=== PATIENT | male | born 1940 | race Caucasian/White ===

== ENCOUNTER 2017-06-17 09:28 | Observation (INO) | payer MEDICARE, OTHER ==
[2017-06-17] VITALS (7 sets, daily range): BP systolic 106–137; BP diastolic 58–75; PULSE 61–73; RESP 16–18; O2SAT 98–99
[~2017-06-17] VITALS: Ht 177.8 cm; Wt 62.2 kg
--- NOTE | 2017-06-17 09:44 | ED.REPORT ---
HPI-Neurologic Deficit Date of Service Jun 17, 2017 ED Provider: Dr. Hernandez Pt is a 77 year old male with a hx of CAD, DM, HTN and hyperlipidemia presenting to the ED complaining of bilateral hand numbness onset today. He states that 3 days ago he fell three times because he lost his balance and felt weak. Yesterday, he developed right sided numbness (right arm and leg) and felt like he had "floaty vision". Today he began having bilateral hand numbness. His reports that for the last 3 months he has been feeling unsteady, increased since 3 days ago. He reports that he hit his head on the grass each time he fell but denies headache, chest pain, abdominal pain, nausea, or vomiting. His states that he has had 13 right hip surgeries throughout the years with some complications. Denies hx of stroke or neurological condition, though his reports that he has had memory problems for a long time which are recently worsening. His doctor took him off Lisinopril a few months ago. Nursing Notes Stated Complaint: POSSIBLE STROKE Chief Complaint: Neuro Symptoms/ Deficits Nursing Notes Reviewed: Yes Allergies: Coded Allergies: TAPE (Verified Allergy, Mild, 12/04/05) pramipexole (Verified Allergy, Mild, UNKNOWN, 09/12/09) rifampin (Verified Allergy, Mild, UNKNOWN, 09/12/09) morphine (Verified Allergy, Unknown, HALLUCINATIONS, 09/12/09) General Time Seen by Provider: 09:45 Chief Complaint Numbness hand... (Both) Hx Obtained From: Patient, Spouse Arrived By: Walk-in Sudden in Onset?: No Onset Occurred: Yesterday Symptom Duration: Since onset Progression Since Onset: Gradually improving Severity: Current: No pain currently Severity: Maximum: No pain Recent Healthcare: No recent doctor visit, No recent hospitalization Similar Sx Previous: No Past Medical History Past Medical History Pernicious anemia angina ASCAD Lichen Sclerosus et atrophicus Chronic low back, right hip, and cervical neck pain Aortic stenosis Hypotestosterone Roscea Osteomyelitis Reports: Coronary artery disease, Diabetes mellitus (Borderline), GERD, Hyperlipidemia (with low HDL), Hypertension Reports: Depression, Thyroid disease (Hypothyroid) Past Surgical History Valve Replacement CABG Multiple shoulder and hip surgeries Smoking History Unknown if Ever Smoker Social History Other Social History: Ambulatory Status Independent Review of Systems Cardiovascular: Denies: Chest pain GI: Denies: Abdominal pain, Nausea, Vomiting Neurologic: Reports: Numbness, Problem walking, Vision change, Denies: Headache Complete sys rev & neg: except as marked. Physical Exam Initial Vital Signs Vital Signs (First) Date Time Temp Pulse Resp B/P Pulse Ox O2 Delivery O2 Flow Rate FiO2 06/17/17 09:32 36.8 73 16 106/58 99 Room Air Initial VS: Reviewed, Vital signs normal ENT: Mucous membranes moist, Conjunctiva normal, No scleral icterus Neck: Supple, Non-tender, Full range of motion Abdomen / GI: Soft, Non-tender, No guarding, No rebound, No distention Extremities: Vascular intact, Neuro intact, No swelling, No tenderness Skin: Warm, Dry, No cyanosis Psychiatric: Mood/affect normal, Behavior normal, Normal thought content General/Constitutional: Awake, Alert, No acute distress Head / Eyes: Atraumatic, Normocephalic, PERRL, EOMI Respiratory / Chest: Breath sounds NL, Breath sounds = bilat, No respiratory distress, No rales, No rhonchi, No wheezing Cardiovascular: Heart rate NL, Regular rhythm, Heart sounds NL, Peripheral circulation NL Neurologic: Oriented X3, Speech NL, No motor deficits, No sensory deficits, CN II - XII intact, Reflexes equal bilat, Cerebellar NL Normal finger to nose and heel to salazar. Interpretation & Diagnostics Lab Results Interpretation Result Diagram: 06/17/17 1025 06/17/17 1025 Test 06/17/17 10:25 06/17/17 12:21 White Blood Count 6.0th/mm3 (3.8-10.1) Red Blood Count 3.62mil/mm3 (4.40-5.80) Hemoglobin 12.0g/dL (13.8-17.2) Hematocrit 36.9% (41.0-50.0) Mean Corpuscular Volume 101.9fL (81-100) Mean Corpuscular Hemoglobin 33.1pg (27.0-35.0) Mean Corpuscular Hemoglobin Concent 32.5% (32.0-37.0) Red Cell Distribution Width 13.6% (12.3-15.4) Platelet Count 242bil/L (150-400) Neutrophils (%) (Auto) 48.6% (40-74) Lymphocytes (%) (Auto) 33.7% (14-46) Monocytes (%) (Auto) 8.5% (4-12) Eosinophils (%) (Auto) 8.2% (0-5) Basophils (%) (Auto) 0.8% (0-3) Prothrombin Time 10.0sec (8.1-12.5) Prothromb Time International Ratio 0.94ratio Activated Partial Thromboplast Time 26.7sec (22.8-33.0) Sodium Level 136mEq/L (134-144) Potassium Level 4.9mEq/L (3.5-5.2) Chloride Level 99mEq/L (97-108) Carbon Dioxide Level 26mmol/L (18-29) Blood Urea Nitrogen 24mg/dL (8-27) Creatinine 1.35mg/dL (0.76-1.27) Estimat Glomerular Filtration Rate 54mL/min (>59) Glucose Level 107mg/dL (60-99) Calcium Level 9.0mg/dL (8.5-10.1) Total Bilirubin 0.4mg/dL (0.0-1.2) Aspartate Amino Transf (AST/SGOT) 24U/L (0-50) Alanine Aminotransferase (ALT/SGPT) 15U/L (0-44) Alkaline Phosphatase 59U/L (25-160) Troponin T 0.010ug/L (0.0-0.011) Total Protein 6.5g/dL (6.4-8.4) Albumin 3.8g/dL (3.4-5.0) Thyroid Stimulating Hormone (TSH) 2.810uIU/mL (0.450-4.500) Free Thyroxine 1.08ng/dL (0.82-1.77) Urine Color Straw (YELLOW) Urine Appearance Hazy (CLEAR,HAZY) Urine pH 6.0 (5.0-8.0) Urine Specific [place] 1.005 (1.003-1.035) Urine Protein Negativemg/dL (NEG,TRACE) Urine Glucose (UA) Negativemg/dL (NEGATIVE) Urine Ketones Negativemg/dL (NEGATIVE) Urine Occult Blood Negative (NEGATIVE) Urine Nitrite Negative (NEGATIVE) Urine Bilirubin Negative (NEGATIVE) Urine Urobilinogen Normalmg/dL (NORMAL) Urine Leukocyte Esterase Negative (NEGATIVE) Urine RBC 0-2/hpf (0-2) Urine WBC 0-5/hpf (0-5) Urine Epithelial Cells Occasional/hpf (NONE-MOD) Urine Crystals None seen (NONE SEEN) Urine Bacteria None/hpf (NONE-FEW) Urine Hyaline Casts Occasional/lpf (NONE) Urine Granular Casts None seen (NONE SEEN) Urine Waxy Casts None seen (NONE SEEN) Urine Red Blood Cell Casts None seen (NONE SEEN) Urine White Blood Cell Casts None seen (NONE SEEN) Urine Mucus None seen (None Seen) Urine Trichomonas None seen (NONE SEEN) Urine Yeast None (NONE SEEN) Urinalysis Comment None Urine Culture Reflexed Not indicated ECG Interpretation ECG Interpretation: 1st degree AV block. Increased QT. Q waves in v1, v2, v3. No acute ST changes. Similar to previous EKG dated 10/2007. Time: 11:00 Interpreted by: ED physician Normal ECG Interpretation: Normal rate (61), Normal sinus rhythm X-Ray Chest Interpretation Chest Xray Interpretation: IMPRESSION: No acute cardiopulmonary disease. Bilaterally symmetric presumed incidental nipple shadows Dislocation of the right glenohumeral joint, although the acuity is unclear. Please correlate clinically and recommend further evaluation with dedicated shoulder series radiographs. Dictated by: Shailesh Almaraz M.D. on 06/17/2017 at 11:01 View: Portable, 1 view Interpretation / Wet Read by: Interpret - Radiologist X-Ray Interpretation Xray Interpretation: IMPRESSION: Severe right shoulder degeneration as above. Dictated by: Shailesh Almaraz M.D. on 06/17/2017 at 12:01 X-Ray Ordered: Shoulder right Interpretation / Wet Read by: Interpret - Radiologist CT Head Interpretation IMPRESSION: There is disproportionate size of the ventricular system compared to the sulci. No acute abnormality is seen intracranially. The appearance of a sprain would suggest the possibility of normal pressure hydrocephalus. Clinical correlation and perhaps nuclear medicine study would be of benefit. Dictated by: Sanket Balbuena M.D. on 06/17/2017 at 10:26 Study: Head CT no contrast Interpretation / Wet Read by: Interpret - Radiologist CT C-Spine Interpretation IMPRESSION: No acute fracture or malalignment. Grade 1/2 anterolisthesis of C4 on C5, chronic. Severe mid to lower cervical degeneration from C4-C7. Dictated by: Shailesh Almaraz M.D. on 06/17/2017 at 10:40 Study type: CT no contrast Interpretation / Wet Read by: Interpret - Radiologist Re-Eval/Medical Decision Med Decision/Clinical Course The patient has symptoms concerning for possible TIA yesterday with numbness to the right side. His symptoms are bilateral which is inconsistent with a CVA but may be related to his recent falls and cervical arthritis. The patient has been having more balance issues recently and was found to have some findings on his CT concerning for normal pressure hydrocephalus. He does indeed have normal pressure hydrocephalus this would explain his balance issue. The patient will be admitted for TIA workup and further evaluation for hydrocephalus. Re-Evaluation/Progress : Time of Eval: 12:01 Patient Status: Condition improved Re-Evaluation/Progress Note: Discussed plan for admission and continued testing. Discussed imaging results. Pt understands and agrees with plan. Consultation : Referral / Consult Name: Nawaf Thomas MD Consulted With: Hospitalist Call Returned at: 12:15 Charge Account Clerk: Will see patient, Agrees with plan, Accepts admit Counseled Regarding: Diagnosis, Lab results, Need for admission Discharge & Departure Impression: Primary Impression: NPH (normal pressure hydrocephalus) Additional Impression: TIA (transient ischemic attack) Transient cerebral ischemia type: other Qualified Code: G45.8 - Other transient cerebral ischemic attacks and related syndromes Disposition: ADMITTED TO HOSPITAL Discharge Condition All VS Reviewed: Yes Condition: Improved Referrals: Lary Kelly MD (PCP) Scribe Attestation Portions of this note were transcribed by Ariana Sosa. I, Dr. Hernandez personally performed the history, physical exam and medical decision-making; I reviewed and confirmed the accuracy of the information in the transcribed note. Signed by : Rl Sanchez, 06/17/2017. copies to: Lary Kelly MD, Jena M MD Jun 17, 2017 09:44 ARIANA SOSA Jun 17, 2017 09:55
[2017-06-17] MEDS ORDERED: 0.9% Sodium Chloride 500 ML IV ONE (10:00)
--- NOTE | 2017-06-17 10:34 | DRSVH ---
PROCEDURE: CT BRAIN WITHOUT CONTRAST ([id number]) INDICATIONS: Stroke TECHNIQUE: Noncontrast 4.5 mm thick angled axial sections acquired from the foramen magnum to the vertex, with c oronal reformats. COMPARISON: None. FINDINGS: Image quality: Good. CSF spaces: Basal cisterns are patent. No extra-axial fluid collections. The ventricles are symmet rajeev in size and shape but enlarged compared to the sulci. Brain: No intracranial bleeds or masses. There is cerebral volume loss for age, with resultant vent ricular and sulcal prominence. There are periventricular and deep white matter chronic small vessel ischemic changes. There is intracranial internal carotid artery atherosclerosis. Skull and face: Calvarium and visualized facial bones appear intact, without suspicious lesions. Sinuses: Visualized sinuses show moderate mucosal thickening in the maxillary and ethmoid sinuses. T he mastoids are clear. IMPRESSION: There is disproportionate size of the ventricular system compared to the sulci. No acute abnormality is seen intracranially. The appearance of a sprain would suggest the possibility of lilian l pressure hydrocephalus. Clinical correlation and perhaps nuclear medicine study would be of benefit . Dictated by: Sanket Balbuena M.D. on 06/17/2017 at 10:26 Approved by: Sanket Balbuena M.D. on 06/17/2017 at 10:32
[2017-06-17 10:35] LABS: BASOPHILS % (AUTO) 0.8 % (0-3); EOSINOPHILS % (AUTO) 8.2 % (0-5); MONOCYTES % (AUTO) 8.5 % (4-12); Mean Corpuscular Hemoglobin 33.1 pg (27.0-35.0); Mean Corpuscular Volume 101.9 fL (81-100); NEUTROPHILS % (AUTO) 48.6 % (40-74); Platelet Count 242 bil/L (150-400)
--- NOTE | 2017-06-17 10:48 | DRSVH ---
PROCEDURE: CT CERVICAL SPINE WITHOUT CONTRAST ([id number]) INDICATIONS: multiple falls with hand numbness TECHNIQUE: Noncontrast 3 mm thick sections acquired from the skull base to the T4 level. Sagittal and coronal r eformats were then constructed. For radiation dose reduction, the following was used: automated exp osure control, adjustment of mA and/or kV according to patient size. COMPARISON: [facility] Tam[facility]o, SPINE CERVICAL 2 OR 3VW, 05/29/2013, 14:28. FINDINGS: Image quality: Excellent. Bones: No fractures or dislocations. Visualized superior ribs are intact. Grade 1/2 anterolisthesi s of C4 on C5 however this is unchanged since 05/29/13. There is diffuse osteopenia. Multilevel mid to lower cervical disc degeneration from C4-C7, severe. Diffuse bilateral facet arthropathy also noted. Soft tissues: Prevertebral soft tissues are normal in thickness. No paravertebral hematomas. No ap ical pneumothoraces. IMPRESSION: No acute fracture or malalignment. Grade 1/2 anterolisthesis of C4 on C5, chronic. Severe mid to lower cervical degeneration from C4-C7. Dictated by: Shailesh Almaraz M.D. on 06/17/2017 at 10:40 Approved by: Shailesh Almaraz M.D. on 06/17/2017 at 10:47
[2017-06-17 10:53] LABS: INR 0.94 ratio
--- NOTE | 2017-06-17 10:56 | NUR ---
Evaluation completed. Please go to "Notes" then click on "Assessments and Notes" (bottom left corner of screen). Then select appropriate discipline tab on top of screen.
[2017-06-17 11:02] LABS: TROPONIN T 0.01 ug/L (0.0-0.011)
--- NOTE | 2017-06-17 11:05 | DRSVH ---
PROCEDURE: X-RAY CHEST ONE VIEW, PORTABLE ([id number]) INDICATIONS: CORNONAR ARTERY DISEASE TECHNIQUE: One view of the chest was acquired. COMPAR[place] [facility] [place], [place]ER MIN 2VW (RT), 01/11/2010, 11:42. [facility] Lau, SHOULDER MIN 2VW (LT), 05/29/2013, 14:28. [facility] Tamayo, CHEST 2VW, 01/02/2013, 11: 08. FINDINGS: Surgical changes and devices: Sternotomy wires and CABG clips.. Lungs and pleura: No pleural effusions or pneumothorax. Lungs are clear. There are bilaterally symm etric incidentally noted nipple shadows Mediastinum: Mediastinal contours appear normal. Heart size is normal. Bones and chest wall: No suspicious bony lesions. Overlying soft tissues appear unremarkable. Disl ocation of the right glenohumeral joint. There is bilateral shoulder joint degeneration. IMPRESSION: No acute cardiopulmonary disease. Bilaterally symmetric presumed incidental nipple shadows Dislocation of the right glenohumeral joint, although the acuity is unclear. Please correlate clinica lly and recommend further evaluation with dedicated shoulder series radiographs. Dictated by: Shailesh Almaraz M.D. on 06/17/2017 at 11:01 Approved by: Shailesh Almaraz M.D. on 06/17/2017 at 11:04
--- NOTE | 2017-06-17 12:04 | DRSVH ---
PROCEDURE: X-RAY RIGHT SHOULDER, MINIMUM TWO VIEWS ([id number]) INDICATIONS: abnormal xray TECHNIQUE: 4 views of the shoulder were acquired. COMPARISON: [facility], CR, SHOULDER MIN 2VW (RT), 01/11/2010, 11:42. FINDINGS: Bones: No fractures or dislocations. No suspicious bony lesions. Visualized ribs appear intact. S evere right shoulder degeneration with [id number]-[id number] appearance, prominent marginal spurring. There is also high riding appearance of the humeral head to just above chronic rotator cuff pathology Soft tissues: No suspicious soft tissue calcifications. IMPRESSION: Severe right shoulder degeneration as above. Dictated by: Shailesh Almaraz M.D. on 06/17/2017 at 12:01 Approved by: Shailesh Almaraz M.D. on 06/17/2017 at 12:02
[2017-06-17] MEDS ORDERED: Ondansetron 2 mg/mL 2 mL Inj IVPUSH PRN (12:25)
[2017-06-17 13:12] LABS: APPEARANCE,URINE HAZY (CLEAR,HAZY); COLOR,URINE STRAW (YELLOW); OCCULT BLOOD,URINE NEGATIVE (NEGATIVE); UROBILINOGEN,URINE NORMAL (NORMAL)
--- NOTE | 2017-06-17 13:43 | PCM.HPMED ---
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 As per patient's , for the past few month, patient was not feeling well, gradually more forgetful and for the past 2-3wks pt became more off balance when he walks using cane or walker. 2days ago, during his yard work, pt was also off his balance and fell hit his Rt knee, head on the grass. Prior to fall, pt denied blurry vision, dizziness, chest pain, palpitation, nausea, vomiting. pt denied LOC, didn't have headache, not confused after each falls, All three falls were in the setting of being off balance. Yesterday afternoon, pt also started to complain of Rt sided weakness on arm and leg, pt/family denied any confusion, facial droop, slurred speech. Today morning, after pt woke up, pt c/o bilateral hand numbness, mild tingling which he never had experienced in the past, was concerned about series of symptoms, brought him to hospital. Of note, Pt was off on Attgtbcyaz2fd since March per , but noted bp 160-180s for the past 2-3days, took 5mg lisinopril last night, this AM BP was recorded 130s. Pt also has DJD on multiple joints, shoulders, knees, takes 7pills of Vicodin per day, which controlled his pain. ROS: denied fever, chills, abd pain, n/v/c/d, pt has baseline urinary frequency , no dysuria, BLOUNT, dizziness, sick contacts, travel, ED VS 106/58, 73,16, afebrile, 99% on RA. labs showed Cr1.35, CTH showed enlarged ventricle consistent to NPH, shoulder/c-spine xray showed no acute findings, dislocation of the right glenohumeral joint-unknown onset, CXR no acute findings. Pt received 1liter of NS bolus During the interview, pt was lucid, communicative, AAOx3, denied BLOUNT, dizziness. at baseline MS per . Review of Systems: Pertinent positives as noted in history of present illness. All other systems were reviewed and are negative Allergies Coded Allergies: TAPE (Verified Allergy, Mild, 12/04/05) pramipexole (Verified Allergy, Mild, UNKNOWN, 09/12/09) rifampin (Verified Allergy, Mild, UNKNOWN, 09/12/09) morphine (Verified Allergy, Unknown, HALLUCINATIONS, 09/12/09) Uncoded Allergies: Pramipexole (Allergy, Mild, UNKNOWN, 12/04/05) Rifampin (Allergy, Mild, UNKNOWN, 12/04/05) TAPE (Allergy, Mild, 12/04/05) nka (Allergy, Unknown, 09/03/04) Home Medications as per EHR 05/26 PCP Percocet 1 tablet every 3-4 hours as needed for pain Lamictal 50mg at noon, 100mg at dinner, 100mg at hs VitB12 2,000 g injection IM q2wk Temazepam 15mg qhs Ketoconazole 2% cream bid Flonase daily [id number] qd Atorvastain 40mg qd LT4 150mcg qd Omeprazole 20mg bid Miralax 2-3times/wk Aspirin 81mg daily Cyvlobenzaprine 5-10mg qhs for RLS MVI qd Magmensium 250mg qd vitD3 2000unit qd PMH Restless leg syndrome Dyspnea S/P CABG Coronary artery disease involving [place] coronary artery of [place] heart without angina pectoris Aortic stenosis, moderate Arthritis Sleep apnea Neck pain Hypertension Essential Coronary atherosclerosis Nuclear senile cataract Hypermetropia URI, acute Chronic Sinusitis Nos Obstructive sleep apnea (adult) (pediatric) Allergic rhinitis Angina Pectoris Arthritis CAD Orthostatic hypotension Insomnia Pernicious Anemia Social History Hx Alcohol Use: No Hx Substance Use: No Smoking Status: Unknown if Ever Smoker Exam Vital Signs Vital Sign - Last Date Time Temp Pulse Resp B/P Pulse Ox O2 Delivery O2 Flow Rate FiO2 06/17/17 09:32 36.8 73 16 106/58 99 Room Air Exam NAD, comfortably laying down on the bed no JVD, MMM, no LAD RRR, nl s1, s2 no mrg CTAB, no w,c S,ND,NT,normoactive BS+ warm, no edema, pulses 2/2 Neuro:speech coherent, fluent, PERRLA, EOMI, symmetric face, no uvulae tongue deviation, able shrug shoulders equally able rotate neck equally on both sides FTN, dysdiadochokinesia intact, motor 5/5 throughout, sensory intact to dull touch Lab and Diagnostics Result Diagram: 06/17/17 1025 06/17/17 1025 Assessment & Plan 77-year-old male with CAD s/p CABG 2008, DM, HTN, HLD presented after 3 episodes of fall 2 days ago, symptoms concerning for stroke. Acute, active Unsteady gait, frequent falls with imbalance, forgetfulness, urinary frequency, POA, likely consistent to NPH, based on CTH findings. Non-focal on neuro exam, although pt subjectively has some paresthesia. no Signs of meningitis or trauma explaining NPH. Acuity of NPH is likely relatively acute given sx onset, no prior CTH was found. -will rule out ischemic stroke with MRI stroke protocol -order LP with opening pressure for diagnostic and therapeutic, monitor improvement, given acute onset, pt may benefit from POTATO PANCAKE FRIER shunt, likely needs to be arranged at other facility. -will get curbside consult with (pt's claims that they personally know )today, no neurology covering today. -PT assessment. -UA Chronic, stable HTN, diet controlled but started by last night, would monitor BP w/o med CAD s/p CABG, moderate , recent TTE 04/24/2017 normal EF, unchanged valvular dz , no RWMA, seen by , continue aspirin hypothyroidism, continue home LT4 HLD, continue statin DJD, PA on multiple joints, continue percocet 10-325 q3h prn BPH, continue tamsulosin depression, continue citalopram CKDII, stable, avoid renal toxin, renally adjust meds dispo:Patient will be admitted with inpatient status with expectation of inpatient therapy for more than 2 midnights diet:DASH dvt ppx:HSQ q12h Full code Time spent 65 minutes Nawaf Thomas MD Jun 17, 2017 12:30
[2017-06-17] MEDS ORDERED: oxyCODONE-Acetamin 10-325 mg Tablet PO PRN (13:50)
--- NOTE | 2017-06-17 14:28 | DRSVH ---
PROCEDURE: MRI STROKE PROTOCOL ([id number]) Pre- and post-contrast brain MRI, non-contrast brain MR angiogram, pre- and postcontrast neck MR anju ogram INDICATIONS: frequent fall NPH on CTH, r/o TIA TECHNIQUE: Brain: Noncontrast axial T1 spin echo, axial T2 fast spin echo, sagittal and axial FLAIR, coronal T2 fast spin echo, axial gradient echo, axial diffusion and ADC through the brain. After the administr ation of contrast, axial 3D VIBE of the cranial vasculature and brain. Brain MRA: Non-contrast 3-D time of flight MR angiogram, with multiple lmowbts-gzpkkhevr-edckfsvfzz (MIP) reformats performed. Neck MRA: Axial and sagittal TruFISP through the neck. Coronal dynamic MR angiogram during administ ration of contrast in the arterial and venous phases, with 3-dimenstional daiyexx-plfryjsay-gdulsyene n (MIP) reformats constructed from subtraction images. COMPARISON: [facility], CT, CT BRAIN WO CON, 06/17/2017, 10:10. FINDINGS: Image quality: Excellent. BRAIN: CSF spaces: Ventricles are enlarged as previously discussed on prior CT dated same day. Basal ciste rns are patent. No extra-axial fluid collections. Brain: No intracranial bleeds or mass effects. Hall-white matter interface is normal. Diffusion we ighted images show no acute ischemic insults. Brainstem appears normal. Normal intravascular flow v oids are present. No abnormal intracranial enhancement. Skull and face: Calvarial marrow signal is normal. Orbits appear normal. Sinuses: There is bilateral maxillary sinus and ethmoid air cell mucosal thickening. BRAIN MR ANGIOGRAM: Anterior circulation: Intracranial internal carotid arteries are normal in size and enhancement. Th e flow within the paired anterior cerebral arteries is normal and symmetric. The flow within the mid dle cerebral arteries is normal and symmetric. No stenoses, occlusions, or aneurysms. Posterior circulation: The visualized portions of the vertebral arteries demonstrate normal caliber, and join to form a normal appearing basilar artery. The flow within the posterior cerebral arteries is normal and symmetric. No stenoses, occlusions, or aneurysms. NECK MR ANGIOGRAM: Carotids: Great vessels demonstrate a conventional anatomy as they arise from the aortic arch. The origins of the common carotid arteries appear patent. The calibers and courses of both common caroti d arteries are normal. The bifurcation regions appear normal bilaterally. The internal carotid mo vincent demonstrate normal course and caliber. Posterior circulation: The origin of the left vertebral artery appears patent. The origin of the righ t vertebral artery is not well-seen. More superior portions of both vertebral arteries demonstrate n ormal course and caliber, and join to form a normal appearing basilar artery. Miscellaneous: Subclavian arteries appear patent. Pre-contrast images through the neck show no soft tissue abnormalities. IMPRESSION: BRAIN MRI: No acute ischemia Enlarged ventricles as before, disproportionate to the appearance of the cortical sulci and again sug gesting normal pressure hydrocephalus, please correlate clinically. If needed, nuclear medicine ciste rnography could be performed. BRAIN MR ANGIOGRAM: No focal stenosis or occlusion NECK MR ANGIOGRAM: Low-grade long segment atherosclerotic narrowing of the proximal left ICA. No focal stenosis. No right ICA focal stenosis. The estimate of stenosis included in the report of the imaging study was calculated using the NASCET method Dictated by: Shailesh Almaraz M.D. on 06/17/2017 at 14:15 Approved by: Shailesh Almaraz M.D. on 06/17/2017 at 14:26
--- NOTE | 2017-06-17 14:45 | NUR ---
[place] [facility] [place] received from Mariam Mitchell RN in ED. Pt brought up to floor via gurney. Pt able to ambulate with cane. A little weak and unsteady with cane from home. Pt oriented to unit, room, and call light. All belongings in closet - disclaimer signed. Admission interventions and MED REC completed - MD paged to update. Pt reports continual hip pain from previous injuries/surgery, was shaking in hands from intensity. [place] administered per orders. Tele: Sbrady 58. Pt updated on plan of care, board updated. Instructed to use call light when needing to get up. Dagmar alarm on. Pt 1P assist for all OOB activity for safety. Continuing with care.
[2017-06-17] MEDS ORDERED: LEVO150T5 PO (15:21)
[2017-06-17] MEDS ORDERED: LIP40 PO (15:21)
[2017-06-17] MEDS ORDERED: LAMO100T PO ×3 (15:24→15:50)
[2017-06-17] MEDS ORDERED: CITA20TA11 PO (15:36)
[2017-06-17] MEDS ORDERED: ASPI-973 PO (15:36)
[2017-06-17] MEDS ORDERED: HYDR-3089 PO (15:36)
[2017-06-17] MEDS ORDERED: RES15 PO (15:36)
[2017-06-17] MEDS ORDERED: OMEP20CA11 PO (15:36)
[2017-06-17] MEDS ORDERED: FOLI0.8C PO (15:36)
[2017-06-17] MEDS ORDERED: LISI-571 PO (15:36)
[2017-06-17] MEDS ORDERED: CYAN-2 IM (15:36)
[2017-06-17] MEDS ORDERED: MAGN400C PO (15:37)
[2017-06-17] MEDS ORDERED: MULT-1018 PO (15:52)
[2017-06-17] MEDS ORDERED: CHOL200047 PO (15:52)
[2017-06-17] MEDS ORDERED: HYDROcodone-APAP 10-325 mg PO PRN (16:00)
[2017-06-17] MEDS: HYDROcodone-APAP 10-325 mg PO SCH (20:59)
[2017-06-17] MEDS ORDERED: lamoTRIgine 100 mg Tablet PO SCH (21:00)
[2017-06-18 00:03] VITALS: BP 109/65; PULSE 60; RESP 18; O2SAT 96
[2017-06-18] MEDS: HYDROcodone-APAP 10-325 mg PO SCH ×5 (00:03→11:33)
[2017-06-18 04:29] VITALS: BP 123/76; PULSE 64; RESP 18; O2SAT 97
[2017-06-18 05:12] LABS: Vitamin D, 25-Hydroxy 66.1 ng/mL (30.0-100.0)
--- NOTE | 2017-06-18 05:54 | NUR ---
PT ACTIVITY/PAIN Pt has been in bed during shift. Pt assisted to turn during night. Pt has chronic pain in hips/legs. PRN po pain medication given scheduled, but pt asked to not be waken up during night to give pain medication. Continue to monitor. Call light in reach. Bed alarm on. Intentional rounding.
[2017-06-18] MEDS ORDERED: Pantoprazole 40 mg ER24 Tablet PO SCH (07:30)
[2017-06-18 07:46] LABS: BASOPHILS % (AUTO) 0.5 % (0-3); EOSINOPHILS % (AUTO) 10.4 % (0-5); MONOCYTES % (AUTO) 8.7 % (4-12); Mean Corpuscular Hemoglobin 33.4 pg (27.0-35.0); Platelet Count 246 bil/L (150-400)
[2017-06-18 08:17] LABS: Magnesium 2.1 mg/dL (1.6-2.6)
[2017-06-18 08:37] VITALS: BP 130/68; PULSE 62; RESP 19; O2SAT 96
--- NOTE | 2017-06-18 10:27 | NUR ---
Case Management: Clarification of patient status: observation per MD order. Dioni Segal RN
--- NOTE | 2017-06-18 10:29 | PCM.DIMED ---
Discharge Instructions Date of Service Jun 18, 2017 Dates of Hospitalization Jun 17, 2017 at 12:46 Discharge Diagnosis Discharge Diagnosis Gait disturbance,Possible NPH Diet Discharge Diet: No restrictions Activity Discharge Activity: Other (as tolerated) Call your provider Call your provider for: Fever or Chills, Shortness of breath, Chest pain, Weakness (unilateral) Patient Instructions Follow-up Provider: Lary Kelly MD Follow-up with PCP in: 1 week Provider: Dave Villanueva MD Follow-up in: Other (as per Dr Villanueva) Analia Newman MD Jun 18, 2017 10:29
[2017-06-18] MEDS ORDERED: LISI-571 PO (10:31)
[2017-06-18] MEDS ORDERED: lamoTRIgine 25 mg Tablet PO SCH (12:00)
--- NOTE | 2017-06-18 12:31 | NUR ---
Case Management: SAM delivered and explained to patient and spouse. Signed original placed in chart. Copy left at bedside. Destiny Kaufman RN
--- NOTE | 2017-06-18 13:20 | NUR ---
Discharge Nursing Note: Patient was discharged to home at 1230. His IV was removed intact. His telemetry was removed. All of his discharge information was reviewed with him and his questions were answered to his satisfaction . Patient was brought in a wheelchair to the hospital lobby by nursing staff member and her was driven to home by his .
--- NOTE | 2017-06-18 13:59 | NUR ---
Social Work-attempted assessment/ discharge: Data:EMR REviewd. Pt is a 77 y/o male who was admitted on 06/17/17 for TIA per H&P. Pt's insurance is [employer] and PCP is Lary Kelly MD. EMR Reviewed. SW attempted to see pt to complete assessment, but pt has already been discharged. PT has cleared pt for home no needs. No discharge needs identified. All updated and agreeable to plan. Assessment:pt who is independent at baseline. Plan:Pt to discharge home today via POV. No discharge needs identified. All updated and agreeable to plan. LAKSHMI Jeter
--- NOTE | 2017-06-18 17:08 | PCM.DC.MED ---
Discharge Summary Date of Service Jun 18, 2017 Dates of Hospitalization Date of Hospital Admission Jun 17, 2017 at 12:46 Date of Discharge: Jun 18, 2017 Providers: Admitting Physician: Nawaf Thomas MD Primary Care Physician: Lary Kelly MD Attending Physician: Nawaf Thomas MD Diagnosis at Time of Discharge Diagnosis at Time of Discharge Gait disturbance,Possible NPH Consultations Neurology Procedures XRay, CTs & MRIs PROCEDURE: MRI STROKE PROTOCOL ([id number]) Pre- and post-contrast brain MRI, non-contrast brain MR angiogram, pre- and postcontrast neck MR angiogram INDICATIONS: frequent fall NPH on CTH, r/o TIA TECHNIQUE: Brain: Noncontrast axial T1 spin echo, axial T2 fast spin echo, sagittal and axial FLAIR, coronal T2 fast spin echo, axial gradient echo, axial diffusion and ADC through the brain. After the administration of contrast, axial 3D VIBE of the cranial vasculature and brain. Brain MRA: Non-contrast 3-D time of flight MR angiogram, with multiple maximum- intensity-projection (MIP) reformats performed. Neck MRA: Axial and sagittal TruFISP through the neck. Coronal dynamic MR angiogram during administration of contrast in the arterial and venous phases, with 3-dimenstional fpfzvdu-ccwcmuzlv-wszbdyfcgf (MIP) reformats constructed from subtraction images. COMPARISON: [facility], CT, CT BRAIN WO CON, 06/17/2017, 10:10. FINDINGS: Image quality: Excellent. BRAIN: CSF spaces: Ventricles are enlarged as previously discussed on prior CT dated same day. Basal cisterns are patent. No extra-axial fluid collections. Brain: No intracranial bleeds or mass effects. Hall-white matter interface is normal. Diffusion weighted images show no acute ischemic insults. Brainstem appears normal. Normal intravascular flow voids are present. No abnormal intracranial enhancement. Skull and face: Calvarial marrow signal is normal. Orbits appear normal. Sinuses: There is bilateral maxillary sinus and ethmoid air cell mucosal thickening. BRAIN MR ANGIOGRAM: Anterior circulation: Intracranial internal carotid arteries are normal in size and enhancement. The flow within the paired anterior cerebral arteries is normal and symmetric. The flow within the middle cerebral arteries is normal and symmetric. No stenoses, occlusions, or aneurysms. Posterior circulation: The visualized portions of the vertebral arteries demonstrate normal caliber, and join to form a normal appearing basilar artery. The flow within the posterior cerebral arteries is normal and symmetric. No stenoses, occlusions, or aneurysms. NECK MR ANGIOGRAM: Carotids: Great vessels demonstrate a conventional anatomy as they arise from the aortic arch. The origins of the common carotid arteries appear patent. The calibers and courses of both common carotid arteries are normal. The bifurcation regions appear normal bilaterally. The internal carotid arteries demonstrate normal course and caliber. Posterior circulation: The origin of the left vertebral artery appears patent. The origin of the right vertebral artery is not well-seen. More superior portions of both vertebral arteries demonstrate normal course and caliber, and join to form a normal appearing basilar artery. Miscellaneous: Subclavian arteries appear patent. Pre-contrast images through the neck show no soft tissue abnormalities. IMPRESSION: BRAIN MRI: No acute ischemia Enlarged ventricles as before, disproportionate to the appearance of the cortical sulci and again suggesting normal pressure hydrocephalus, please correlate clinically. If needed, nuclear medicine cisternography could be performed. BRAIN MR ANGIOGRAM: No focal stenosis or occlusion NECK MR ANGIOGRAM: Low-grade long segment atherosclerotic narrowing of the proximal left ICA. No focal stenosis. No right ICA focal stenosis. The estimate of stenosis included in the report of the imaging study was calculated using the NASCET method Dictated by: Shailesh Almaraz M.D. on 06/17/2017 at 14:15 Approved by: Shailesh Almaraz M.D. 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 As per patient's , for the past few month, patient was not feeling well, gradually more forgetful and for the past 2-3wks pt became more off balance when he walks using cane or walker. 2days ago, during his yard work, pt was also off his balance and fell hit his Rt knee, head on the grass. Prior to fall, pt denied blurry vision, dizziness, chest pain, palpitation, nausea, vomiting. pt denied LOC, didn't have headache, not confused after each falls, All three falls were in the setting of being off balance. Yesterday afternoon, pt also started to complain of Rt sided weakness on arm and leg, pt/family denied any confusion, facial droop, slurred speech. Today morning, after pt woke up, pt c/o bilateral hand numbness, mild tingling which he never had experienced in the past, was concerned about series of symptoms, brought him to hospital. Of note, Pt was off on [id number] since March per , but noted bp 160-180s for the past 2-3days, took 5mg lisinopril last night, this AM BP was recorded 130s. Pt also has DJD on multiple joints, shoulders, knees, takes 7pills of Vicodin per day, which controlled his pain. ROS: denied fever, chills, abd pain, n/v/c/d, pt has baseline urinary frequency , no dysuria, BLONUT, dizziness, sick contacts, travel, ED VS 106/58, 73,16, afebrile, 99% on RA. labs showed Cr1.35, CTH showed enlarged ventricle consistent to NPH, shoulder/c-spine xray showed no acute findings, dislocation of the right glenohumeral joint-unknown onset, CXR no acute findings. Pt received 1liter of NS bolus During the interview, pt was lucid, communicative, AAOx3, denied BLOUNT, dizziness. at baseline MS per . Hospital Course 77-year-old male with CAD s/p CABG 2008, DM, HTN, HLD presented after 3 episodes of fall 2 days ago, symptoms concerning for stroke. Acute, active Unsteady gait, frequent falls with imbalance, forgetfulness, urinary frequency, POA, likely consistent to NPH, based on CTH findings. Non-focal on neuro exam, although pt subjectively has some paresthesia. no Signs of meningitis or trauma explaining NPH. Acuity of NPH is likely relatively acute given sx onset, no prior CTH was found. -MRI results are consistent with NPH and Dr. Hardin has been consult to -Per Dr. Hardin unable to get cisternogram until Friday -Patient is able to ambulate safe to be at home with the assistance of his after being evaluated by physical therapy prior to discharge -He is to follow up with Dr. Hardin who I did speak with and will arrange outpatient cisternogram Chronic, stable HTN, diet controlled but started by last night, would monitor BP w/o med CAD s/p CABG, moderate , recent TTE 04/24/2017 normal EF, unchanged valvular dz , no RWMA, seen by , continue aspirin hypothyroidism, continue home LT4 HLD, continue statin DJD, PA on multiple joints, continue percocet 10-325 q3h prn BPH, continue tamsulosin depression, continue citalopram CKDII, stable, avoid renal toxin, renally adjust meds Exam Vital Signs (Last) Date Time Temp Pulse Resp B/P Pulse Ox O2 Delivery O2 Flow Rate FiO2 06/18/17 08:37 36.7 62 19 130/68 96 Room Air Exam Constitutional: Elderly male in no acute distress Head: Normocephalic atraumatic Chest: Clear to auscultation Cor: Regular rate and rhythm S1-S2 without murmur Abdomen: Soft nontender bowel sounds present Extremities: No pedal edema Neuro: Alert and oriented 3 motor strength is intact bilaterally gait is not assessed by myself Test 06/17/17 10:25 06/17/17 12:21 06/17/17 18:02 06/18/17 07:00 Prothrombin Time 10.0sec (8.1-12.5) Prothromb Time International Ratio 0.94ratio Activated Partial Thromboplast Time 26.7sec (22.8-33.0) Troponin T 0.010ug/L (0.0-0.011) Thyroid Stimulating Hormone (TSH) 2.810uIU/mL (0.450-4.500) Free Thyroxine 1.08ng/dL (0.82-1.77) Urine Color Straw (YELLOW) Urine Appearance Hazy (CLEAR,HAZY) Urine pH 6.0 (5.0-8.0) Urine Specific Anthony 1.005 (1.003-1.035) Urine Protein Negativemg/dL (NEG,TRACE) Urine Glucose (UA) Negativemg/dL (NEGATIVE) Urine Ketones Negativemg/dL (NEGATIVE) Urine Occult Blood Negative (NEGATIVE) Urine Nitrite Negative (NEGATIVE) Urine Bilirubin Negative (NEGATIVE) Urine Urobilinogen Normalmg/dL (NORMAL) Urine Leukocyte Esterase Negative (NEGATIVE) Urine RBC 0-2/hpf (0-2) Urine WBC 0-5/hpf (0-5) Urine Epithelial Cells Occasional/hpf (NONE-MOD) Urine Crystals None seen (NONE SEEN) Urine Bacteria None/hpf (NONE-FEW) Urine Hyaline Casts Occasional/lpf (NONE) Urine Granular Casts None seen (NONE SEEN) Urine Waxy Casts None seen (NONE SEEN) Urine Red Blood Cell Casts None seen (NONE SEEN) Urine White Blood Cell Casts None seen (NONE SEEN) Urine Mucus None seen (None Seen) Urine Trichomonas None seen (NONE SEEN) Urine Yeast None (NONE SEEN) Urinalysis Comment None Urine Culture Reflexed Not indicated Vitamin B12 Level 606pg/mL (211-946) Vitamin D 25-Hydroxy 66.1ng/mL (30.0-100.0) White Blood Count 5.9th/mm3 (3.8-10.1) Red Blood Count 3.65mil/mm3 (4.40-5.80) Hemoglobin 12.2g/dL (13.8-17.2) Hematocrit 37.6% (41.0-50.0) Mean Corpuscular Volume 103.0fL (81-100) Mean Corpuscular Hemoglobin 33.4pg (27.0-35.0) Mean Corpuscular Hemoglobin Concent 32.4% (32.0-37.0) Red Cell Distribution Width 13.8% (12.3-15.4) Platelet Count 246bil/L (150-400) Neutrophils (%) (Auto) 34.0% (40-74) Lymphocytes (%) (Auto) 46.2% (14-46) Monocytes (%) (Auto) 8.7% (4-12) Eosinophils (%) (Auto) 10.4% (0-5) Basophils (%) (Auto) 0.5% (0-3) Sodium Level 139mEq/L (134-144) Potassium Level 4.9mEq/L (3.5-5.2) Chloride Level 101mEq/L (97-108) Carbon Dioxide Level 28mmol/L (18-29) Blood Urea Nitrogen 19mg/dL (8-27) Creatinine 1.15mg/dL (0.76-1.27) Estimat Glomerular Filtration Rate 66mL/min (>59) Glucose Level 115mg/dL (60-99) Calcium Level 9.1mg/dL (8.5-10.1) Magnesium Level 2.1mg/dL (1.6-2.6) Total Bilirubin 0.2mg/dL (0.0-1.2) Aspartate Amino Transf (AST/SGOT) 22U/L (0-50) Alanine Aminotransferase (ALT/SGPT) 14U/L (0-44) Alkaline Phosphatase 62U/L (25-160) Total Protein 6.2g/dL (6.4-8.4) Albumin 3.8g/dL (3.4-5.0) Discharge Medications Discharge Medications Aspirin (Aspirin) 81 Mg Tablet 81 MG PO DAILY (Reported) Atorvastatin (Lipitor) 40 Mg Tablet 40 MG PO DAILYWD (Reported) Cholecalciferol (Vitamin D3) (Vitamin D3) 2,000 Unit Capsule 2,000 UNIT PO DAILY (Reported) Citalopram (Citalopram) 20 Mg Tablet 20 MG PO HS (Reported) Cyanocobalamin (Vitamin B-12) (B-12) 1,000 Mcg/Ml Drops 1,000 MCG IM Every 2 weeks (Reported) Folic Acid (Folic Acid) 0.8 Mg Capsule 0.8 MG PO DAILY (Reported) Hydrocodone-Acetaminophen 10-300 mg (Hydrocodone-Acetaminophen 10-300 mg) 1 Each Tablet 1 TABLET PO Q3H (Reported) Lamotrigine (Lamictal) 100 Mg Tablet 50 MG PO DAILYWL (Reported) Lamotrigine (Lamictal) 100 Mg Tablet 100 MG PO DAILYWD (Reported) Lamotrigine (Lamictal) 100 Mg Tablet 100 MG PO HS (Reported) Levothyroxine (Levothyroxine) 150 Mcg Tablet 150 MCG PO DAILY (Reported) Lisinopril (Lisinopril) 5 Mg Tablet 5 MG PO DAILY (Reported) Lisinopril (Lisinopril) 5 Mg Tablet 5 MG PO DAILY Prescribed by: MARISOL JEREZ MD Magnesium Oxide (Magnesium) 400 Mg Capsule 400 MG PO DAILY (Reported) Multivitamin (Multi Vitamin Daily) 1 Each Tablet 1 EACH PO DAILY (Reported) Omeprazole (Omeprazole) 20 Mg Capsule.dr 20 MG PO BIDAC (Reported) Temazepam (Temazepam) 15 Mg Capsule 15 MG PO HS (Reported) Followup Plan Discharge Diet: No restrictions Discharge Activity: Other (as tolerated) Follow-up Provider: Lary Kelly MD Follow-up with PCP in: 1 week Provider: Dave Villanueva MD Follow-up in: Other (as per Dr Villanueva) Time spent 60 minutes copies to: Lary Kelly MD, Cheryl A MD Jun 18, 2017 17:08
[2017-06-18] MEDS ORDERED: lamoTRIgine 100 mg Tablet PO SCH (17:30)
== END 2017-06-18 13:20 | disposition home or self-care (01) ==
LOC: SED 09:28 → MPC 12:46
PROVIDERS: ADMIT Internal Medicine; ATTEND Internal Medicine
DX: G91.2 (Idiopathic) normal pressure hydrocephalus (principal); R26.81 Unsteadiness on feet; R20.0 Anesthesia of skin; M25.511 Pain in right shoulder; I12.9 Hypertensive chronic kidney disease with stage 1 through stage 4 chronic kidney disease, or unspecified chronic kidney disease; I25.10 Atherosclerotic heart disease of native coronary artery without angina pectoris; I35.0 Nonrheumatic aortic (valve) stenosis; E11.22 Type 2 diabetes mellitus with diabetic chronic kidney disease; N18.2 Chronic kidney disease, stage 2 (mild); E03.9 Hypothyroidism, unspecified; F32.9 Major depressive disorder, single episode, unspecified; N40.0 Benign prostatic hyperplasia without lower urinary tract symptoms; M19.90 Unspecified osteoarthritis, unspecified site; G25.81 Restless legs syndrome; G47.33 Obstructive sleep apnea (adult) (pediatric); E78.5 Hyperlipidemia, unspecified; Z88.8 Allergy status to other drugs, medicaments and biological substances; Z91.048 Other nonmedicinal substance allergy status; Z95.1 Presence of aortocoronary bypass graft; Z79.891 Long term (current) use of opiate analgesic; Z91.81 History of falling; Z79.82 Long term (current) use of aspirin
CPT/HCPCS: 36415; 70450; 70549; 70553; 71010; 72125; 73030; 80053; 81000; 82306; 82607; 83735; 84439; 84443; 84484; 85025; 85610; 85730; 92610; 93005; 96360; 96372; 97162; 99285; A9585; G0378; G8978; G8979; G8980; G8996; G8997; G8998; J1650; J7040